=== PATIENT | male | born 1970 | race Caucasian/White ===

== ENCOUNTER 2024-06-19 17:26 | Outpatient (CLI) | payer BC, SELFPAY | END 2024-06-19 17:27 | disposition home or self-care (01) | LOC: AMB 06-20 04:10 | PROVIDERS: PCP Family Medicine; Visit Provider Emergency Medicine Emergency Medical Services | DX: R55 Syncope and collapse (principal) | CPT/HCPCS: A0425; A0427 ==

== ENCOUNTER 2024-06-19 18:06 | Emergency (ER) | payer BC, SELFPAY ==
[2024-06-19] VITALS (32 sets, daily range): BP systolic 70–117; BP diastolic 35–102; PULSE 81–95; RESP 20; TEMP 35.8; O2SAT 95–100; BMI 32.4
[2024-06-19 18:38] LABS: Lactate Sepsis w/Reflex* 7.4 mmol/L (0.5-1.9)
[2024-06-19 18:39] LABS: Basophils Absolute Auto 0.01 K/uL (0.00-0.30); Basophils Percent Auto 0.1 % (0.0-3.0); Hematocrit 34.4 % (37.0-53.0); Immature Granulocytes Abs Auto 0.04 K/uL (0.00-0.30); Immature Granulocytes Pct Auto 0.6 %; Lymphocytes Percent Auto 50.5 % (20-44); Mean Corpuscular HGB Conc 35 gm/dL (32-36); Mean Corpuscular Hemoglobin 31 pg (26-34); Mean Corpuscular Volume 89 fL (80-100); Monocytes Percent Auto 2.6 % (0.0-11.0); Neutrophils Absolute Auto 3.32 K/uL (1.7-7.0); Neutrophils Percent Auto 46.2 % (42.0-72.0); Platelet Count* 76 K/uL (140-440); RDW Coefficient of Variation % 11.8 % (11.5-15.5); Red Blood Count 3.85 m/uL (4.30-5.90); White Blood Count* 7.19 K/uL (4.50-11.00)
--- NOTE | 2024-06-19 18:45 | CRLHL7_ITS ---
For Patients: As a result of the Century Cures Act, medical imaging exams and procedure reports are released immediately into your electronic medical record. You may view this report before your referring provider. If you have questions, please contact your health care provider. Indication: Hypotensive, thrombocytopenia Technique: Noncontrast CT through the head with multiplanar reformats Comparison: None Findings: Brain: No acute hemorrhage. No acute infarct. No significant mass effect or midline shift. No gross evidence of a mass lesion or cerebral edema. Mild chronic microvascular ischemic disease. Ventricles: No acute abnormality appreciated. Orbits, sinuses, mastoids: No acute abnormality appreciated. Calvarium and soft tissues: No acute abnormality appreciated. Impression: No acute abnormality appreciated. Please note that all CT scans at this facility use dose modulation, iterative reconstruction, and/or weight-based dosing when appropriate to reduce radiation dose to as low as reasonably achievable. Dictated by Alexi Liriano MD @ 06/19/2024 9:19:14 PM (Electronically Signed)
[2024-06-19] MEDS: 0.9 % SODIUM CHLORIDE 1000 ml 1,000 ML IV (18:54)
[2024-06-19 18:59] LABS: Albumin* 3.4 g/dL (3.3-5.0); Chloride* 98 mmol/L (96-114); Sodium* 132 mmol/L (135-149)
[2024-06-19 19:02] LABS: Alanine Aminotransferase* 66 U/L (4-50); Alkaline Phosphatase* 59 U/L (40-150); Anion Gap 14 mEq/L (7-15); Aspartate Amino Transferase* 77 U/L (12-35); Bilirubin Total* 1.2 mg/dL (0.1-1.5); Blood Urea Nitrogen* 22 mg/dL (7-30); Calcium* 8.8 mg/dL (8.4-10.6); Carbon Dioxide* 20 mmol/L (20-32); Creatinine* 1.2 mg/dL (0.5-1.5); Est. Creatinine Clearance* 89.92; Estimated Glomerular Filt Rate 71 ml/min; Glucose* 306 mg/dL (60-115); Total Protein* 6.1 g/dL (6.0-8.3)
[2024-06-19 19:03] LABS: Magnesium* 2.5 mg/dL (1.5-2.6)
[2024-06-19 19:04] LABS: Slide Review Reflex No
[2024-06-19 19:12] LABS: NT Pro B Type NatriureticPept* 132 pg/mL
[2024-06-19 19:13] LABS: Troponin I* 0.02 ng/mL (0.01-0.04)
[2024-06-19 19:26] LABS: pH VBG 7.373 (7.32-7.43)
[2024-06-19 19:27] LABS: HCO3 VBG 23 mmol/L (21-28); PCO2 VBG 39 mmHG (40-50); PO2 VBG < 30.1 mmHG (25-47)
[2024-06-19 19:35] LABS: PCR FLU A Negative PCR FLU A (Negative); PCR FLU B Negative PCR FLU B (Negative); SARS PCR* Negative SARS-CoV-2 (Negative)
[2024-06-19 19:51] LABS: Ethanol* < 0.01 % (0.01-0.03)
[2024-06-19] MEDS: HYDROCORTISONE SOD SUCCINATE 50 MG/ML inj IVP (19:51)
[2024-06-19] MEDS: PIPERACILLIN/TAZOBACTAM 3.375 GM in 0.9 % SODIUM CHLORIDE Mini-bag 100 ML IVPB (19:57)
--- NOTE | 2024-06-19 19:58 | ED.GENADULT ---
HPI - General Adult General Date Seen: 06/19/24 Chief complaint: Syncope/Fainted Stated complaint: Fall Time Seen by Provider: 06/19/24 18:13 Source: patient and EMS Mode of arrival: EMS Limitations: no limitations History of Present Illness HPI narrative: Patient is a 53-year-old male presenting to emergency department for lightheadedness. He states he was walking up his steps before very lightheaded and fell to his hands and knees. He denies hitting his head denies any other injuries but was feeling very lightheaded still in his neighbor helped him out of his house. He states he started feel better when he lies down. EMS was then called and when they arrived his blood pressure was normal but since he stood up the he became more hypotensive and since then his blood pressures have been in the 70s to 80 systolic. Patient states he still feels very lightheaded at this time. He was given fluids by EMS in route. Patient states he was seen in the emergency department at an [facility] direct yesterday for and turn thrombocytopenia and a swollen scrotum. Ultrasound scrotum was done showing hydrocele and he states the swelling has gone down quite a bit he is no longer having pain. At that time they noticed he had be the cause 27 and did more imaging and did not find any abnormalities. Lab work did not show any concerning findings for them and he was discharged according to the patient. Denies fevers, chills, chest pain, shortness of breath, abdominal pain, diarrhea, constipation, headache, vision changes. Related Data Home Medications ?Medication ?Instructions ?Recorded ?Confirmed No Known Home Medications 11/15/22 Allergies Allergy/AdvReac Type Severity Reaction Status Date / Time No Known Allergies Allergy Unknown Unknown Verified 11/15/22 14:27 Review of Systems Status of ROS: Reports: 10 or more systems reviewed and unremarkable except as noted in History and below [facility] Surgical History Status post surgical removal of pilonidal cyst ?Z98.890 - Other specified postprocedural states (ICD-10) Status post tonsillectomy and adenoidectomy ?Z90.89 - Acquired absence of other organs (ICD-10) Social History Smoking Status: Never smoker Exam Narrative: Exam Narrative: Const: Well-nourished, Well-developed, in moderate distress Eyes: PERRL, no conjunctival injection, and symmetrical lids HENT: Atraumatic external nose and ears. Moist mucous membranes. Neck: Symmetric, trachea midline, No thyromegaly. CVS: RRR, No murmurs or gallops. Peripheral pulses 2+ and equal in all extremities RESP: Unlabored respiratory effort. Clear to auscultation bilaterally. GI: Nontender/Nondistended, No rebound or guarding. MSK:Extremities w/o deformity, Normal Active ROM Skin: Warm, Dry. No rashes or lesions. Neuro: Normal Muscle tone, No focal neurological deficits. Psych: Awake, Alert, & Oriented x3. Appropriate mood and affect. Const: Vital Signs, click to edit/add: Vital Signs - 24 hr 06/19/24 18:14 06/19/24 18:14 06/19/24 18:15 Temperature 96.5 F L Pulse Rate 90 87 Pulse Rate [Pulse Oximeter] 88 Respiratory Rate 20 Blood Pressure 73/57 L Blood Pressure [Le ft Upper Arm] 73/57 L Pulse Oximetry 95 100 100 Oxygen Delivery Me od Room Air 06/19/24 18:20 06/19/24 18:30 06/19/24 18:32 Temperature Pulse Rate 86 85 84 Pulse Rate [Pulse Oximeter] Respiratory Rate Blood Pressure 76/54 L 82/61 L Blood Pressure [Le ft Upper Arm] Pulse Oximetry 99 100 98 Oxygen Delivery Nm thod 06/19/24 18:33 06/19/24 18:41 06/19/24 18:45 Temperature Pulse Rate 83 83 84 Pulse Rate [Pulse Oximeter] Respiratory Rate Blood Pressure 90/61 Blood Pressure [Le ft Upper Arm] Pulse Oximetry 98 99 100 [facility] 18:57 06/19/24 18:59 06/19/24 19:00 Temperature Pulse Rate 83 82 Pulse Rate [Pulse Oximeter] Respiratory Rate Blood Pressure 75/62 L 73/53 L Blood Pressure [Le ft Upper Arm] Pulse Oximetry 100 100 Oxygen Delivery Me thod 06/19/24 19:02 06/19/24 19:06 06/19/24 19:29 Temperature Pulse Rate 81 81 Pulse Rate [Pulse Oximeter] Respiratory Rate Blood Pressure 70/55 L 80/35 L 85/53 L Blood Pressure [Le ft Upper Arm] Pulse Oximetry 100 96 Oxygen Delivery Me thod 06/19/24 19:30 06/19/24 19:31 06/19/24 19:38 Temperature Pulse Rate 83 83 84 Pulse Rate [Pulse Oximeter] Respiratory Rate Blood Pressure 78/58 L 117/102 H Blood Pressure [Le ft Upper Arm] Pulse Oximetry 97 97 100 Oxygen Delivery Me thod 06/19/24 19:42 06/19/24 19:45 06/19/24 19:49 Temperature Pulse Rate 86 87 85 Pulse Rate [Pulse Oximeter] Respiratory Rate Blood Pressure 95/66 86/72 L Blood Pressure [Le ft Upper Arm] Pulse Oximetry 100 95 98 Oxygen Delivery Me thod 06/19/24 19:52 06/19/24 20:00 06/19/24 20:02 Temperature Pulse Rate 88 86 Pulse Rate [Pulse Oximeter] Respiratory Rate Blood Pressure 112/72 95/49 L Blood Pressure [Le ft Upper Arm] Pulse Oximetry 98 100 Oxygen Delivery Me thod 06/19/24 20:11 06/19/24 20:12 06/19/24 20:15 Temperature Pulse Rate 88 87 89 Pulse Rate [Pulse Oximeter] Respiratory Rate Blood Pressure 110/68 Blood Pressure [Le ft Upper Arm] Pulse Oximetry 97 99 96 Oxygen Delivery Me thod 06/19/24 21:02 06/19/24 21:18 Temperature Pulse Rate 89 95 Pulse Rate [Pulse Oximeter] Respiratory Rate Blood Pressure Blood Pressure [Le ft Upper Arm] Pulse Oximetry 99 100 Oxygen Delivery Me thod Course Vital Signs Vital signs: Initial Vital Signs Temperature 96.5 F L 06/19/24 18:14 Temperature Source Temporal Artery Scan 06/19/24 18:14 Pulse Rate 90 06/19/24 18:14 Pulse Rhythm Regular 06/19/24 18:14 Respiratory Rate 20 06/19/24 18:14 Blood Pressure 73/57 L 06/19/24 18:14 Blood Pressure Mean 62 L 06/19/24 18:14 Blood Pressure Position Supine 06/19/24 18:14 Pulse Oximetry 95 06/19/24 18:14 Oxygen Delivery Method Room Air 06/19/24 18:14 Vital Signs Temperature 96.5 F L 06/19/24 18:14 Pulse Rate 90 06/19/24 18:14 Respiratory Rate 06/19/24 18:14 Blood Pressure 73/57 L 06/19/24 18:14 Pulse Oximetry 95 06/19/24 18:14 Oxygen Delivery Method Room Air 06/19/24 18:14 Temperature 96.5 F L 06/19/24 18:14 Pulse Rate 95 06/19/24 21:18 Respiratory Rate 20 06/19/24 18:14 Blood Pressure 110/68 06/19/24 20:11 Pulse Oximetry 100 06/19/24 21:18 Oxygen Delivery Method Room Air 06/19/24 18:14 Medications Administered Medications: Generic Name Dose Route Start Last Admin Trade Name Freq PRN Reason Stop Dose Admin Hydrocortisone Sodium Succinate 50 mg 06/19/24 19:45 06/19/24 19:51 Hydrocortisone Sod Succinate 50 Mg/Ml Inj IVP 50 mg Q6H NOAH Administration Norepinephrine/Dextrose 4,000 mcg in 250 mls @ 47.627 mls/hr 06/19/24 19:15 06/19/24 19:34 Norepinephrine Infusion IV 0.1 mcg/kg/min CONT NOAH 47.63 mls/hr Administration Protocol 0.1 MCG/KG/MIN Sodium Chloride 2,000 mls @ 1,000 mls/hr 06/19/24 20:00 06/19/24 20:00 0.9 % Sodium Chloride 1000 Ml IV 06/19/24 21:59 Infused .Q2H NOAH Infusion Discontinued Medications Generic Name Dose Route Start Last Admin Trade Name Freq PRN Reason Stop Dose Admin Sodium Chloride 1,000 mls @ 1,000 mls/hr 06/19/24 18:30 06/19/24 18:54 0.9 % Sodium Chloride 1000 Ml IV 06/19/24 19:29 Infused .Q1H NOAH Infusion Vancomycin/PEG/NADA/Lysine/Water 2 gm in 400 mls @ 200 mls/hr 06/19/24 19:44 06/19/24 20:54 Vancomycin 2 Gm/400 Ml IVPB 06/19/24 21:43 200 mls/hr ONCE ONE Administration Protocol Piperacillin Sod/Tazobactam 100 mls @ 200 mls/hr 06/19/24 19:44 06/19/24 20:55 Sod 3.375 gm/ Sodium Chloride IVPB 06/19/24 19:45 Infused ONCE ONE Infusion Medical Decision Making MDM Narrative Medical decision making narrative: Patient is a 53-year-old male presenting to emergency department for hypertension. I am unsure was causes hypertension and differential is broad including aortic dissection, AAA, PE, pneumothorax, ACS, sepsis. He did recently start dexamethasone this morning. I will order broad workup including CBC, CMP, COVID/flu/RSV, urine drug screen, urinalysis, troponin, lactate, magnesium, blood cultures, BNP, ETOH, VBG. Will be given him several L of normal saline per sepsis protocol. Lab work returned showing a platelet count 76 which is up from 27 yesterday and hemoglobin of 12 which is actually down from 14.8 yesterday. His VBG shows no concerning abnormalities. CMP really shows no obvious abnormalities he has a slightly low sodium of 132 his AST and ALT are slightly elevated by likely be causing symptoms. BMP within normal limits. Troponin within normal limits. His lactate is elevated 7.4 this makes the concern for sepsis but also just be from his hypotension that that is been going on longer than we realized. Of note his blood pressure was normal yesterday at [facility]. His blood sugars elevated at 306 per no signs of DKA or HHS. No recent head injuries and neurogenic shock seems unlikely. A cardiogenic shock is possible but no signs of STEMI at this time. I initially ordered a brenner scan of chest abdomen pelvis and CT scan head but the CT scanner was not working and thus delayed the CT scan. In the meantime I will start him on Solu-Cortef 50 mg q.6 along with vanco and Zosyn. He was started on Levophed as blood pressures were not improving at all with the fluid boluses. While was waiting for CT scanning to become working again I spoke to multiple ICU for transfer. I did then she was able to get transfer to [place] [facility] Dr. Sim accepted. After this CT scanner became working again and I ordered a CT scan of the head along with a CTA of the chest abdomen pelvis. Considering he has this undifferentiated shock I believe this to be more useful and he also has that slight hemoglobin drop. CT scan of the head reviewed by myself the radiologist shows no acute abnormalities. CT of the chest abdomen pelvis shows a 5.8 ascending aneurysm but this is not appear to be causing his symptoms. There is a large amount of blood seen within the abdomen. It appears to be coming from the spleen by cannot say for certain considering the phase of the contrast. He graham not remember any falls or injuries to his abdomen. I do not think he would be appropriate for leg feels are called [facility] back and they will take him directly to the emergency department. I spoke to Dr. Bustamanteaccepted him. There also have the surgeon on the call also. They are agreeable to this plan. Patient be started on blood. We do not have platelets available to start. He will be transferred via helicopter. Lab Data Labs: Lab Results 06/19/24 06/19/24 06/19/24 Range/Units 18:22 18:25 18:45 WBC 7.19 (4.50-11.00) K/uL RBC 3.85 L (4.30-5.90) m/uL Hgb 12.0 L (13.5-17.5) gm/dL Hct 34.4 L (37.0-53.0) % MCV 89 (80-100) fL MCH 31 (26-34) pg MCHC 35 (32-36) gm/dL RDW Coeff of Verena 11.8 (11.5-15.5) % Plt Count 76 L (140-440) K/uL Neut % (Auto) 46.2 (42.0-72.0) % Lymph % (Auto) 50.5 H (20-44) % Ripley % (Auto) 2.6 (0.0-11.0) % Eos % (Auto) 0.0 (0.0-7.0) % Baso % (Auto) 0.1 (0.0-3.0) % Neut # (Auto) 3.32 (1.7-7.0) K/uL Lymph # (Auto) 3.60 H (0.90-2.90) K/uL Ripley # (Auto) 0.20 (0.00-0.90) K/UL Eos # (Auto) 0.00 (0.00-0.50) K/uL Baso # (Auto) 0.01 (0.00-0.30) K/uL Abs Immat Gran (auto) 0.04 (0.00-0.30) K/uL Imm/Tot Granulo (auto) 0.6 % Absolute Retic 0.03 (0.03-0.08) # Percent Retic 0.7 (0.5-2.0) % Immature Retic Fraction 14.5 H (2.3-13.4) % Retic Hgb Equivalent 27.4 L (29.0-35.0) pg VBG pH 7.373 (7.32-7.43) VBG pCO2 39 L (40-50) mmHG VBG pO2 < 30.1 (25-47) mmHG VBG HCO3 23 (21-28) mmol/L Sodium 132 L (135-149) mmol/L Potassium 4.0 (3.6-5.1) mmol/L Chloride 98 (96-114) mmol/L Carbon Dioxide 20 (20-32) mmol/L Anion Gap 14 (7-15) mEq/L BUN 22 (7-30) mg/dL Creatinine 1.2 (0.5-1.5) mg/dL Estimated Creat Clear 89.92 Estimated GFR 71 ml/min Glucose 306 H (60-115) mg/dL Lactate 7.4 H* (0.5-1.9) mmol/L Calcium 8.8 (8.4-10.6) mg/dL Magnesium 2.5 (1.5-2.6) mg/dL Total Bilirubin 1.2 (0.1-1.5) mg/dL AST 77 H (12-35) U/L ALT 66 H (4-50) U/L Alkaline Phosphatase 59 (40-150) U/L Troponin I 0.02 (0.01-0.04) ng/mL NT-Pro-B Natriuret Pep 132 pg/mL Total Protein 6.1 (6.0-8.3) g/dL Albumin 3.4 (3.3-5.0) g/dL Ethyl Alcohol < 0.01 L (0.01-0.03) % SARS-CoV-2 (PCR) (Negative) Influenza Type A (PCR) (Negative) Influenza Type B (PCR) (Negative) Lab Acknowledgement POC Creatinine 1.3 (0.6-1.3) mg/dl POC Troponin I 0.00 L (0.01-0.04) ng/ml 06/19/24 06/19/24 06/19/24 Range/Units 18:46 19:17 20:49 WBC (4.50-11.00) K/uL RBC (4.30-5.90) m/uL Hgb (13.5-17.5) gm/dL Hct (37.0-53.0) % MCV (80-100) fL MCH (26-34) pg MCHC (32-36) gm/dL RDW Coeff of Verena (11.5-15.5) % Plt Count (140-440) K/uL Neut % (Auto) (42.0-72.0) % Lymph % (Auto) (20-44) % Ripley % (Auto) (0.0-11.0) % Eos % (Auto) (0.0-7.0) % Baso % (Auto) (0.0-3.0) % Neut # (Auto) (1.7-7.0) K/uL Lymph # (Auto) (0.90-2.90) K/uL Ripley # (Auto) (0.00-0.90) K/UL Eos # (Auto) (0.00-0.50) K/uL Baso # (Auto) (0.00-0.30) K/uL Abs Immat Gran (auto) (0.00-0.30) K/uL Imm/Tot Granulo (auto) % Absolute Retic (0.03-0.08) # Percent Retic (0.5-2.0) % Immature Retic Fraction (2.3-13.4) % Retic Hgb Equivalent (29.0-35.0) pg VBG pH (7.32-7.43) VBG pCO2 (40-50) mmHG VBG pO2 (25-47) mmHG VBG HCO3 (21-28) mmol/L Sodium (135-149) mmol/L Potassium (3.6-5.1) mmol/L Chloride (96-114) mmol/L Carbon Dioxide (20-32) mmol/L Anion Gap (7-15) mEq/L BUN (7-30) mg/dL Creatinine (0.5-1.5) mg/dL Estimated Creat Clear Estimated GFR ml/min Glucose (60-115) mg/dL Lactate 5.4 H* (0.5-1.9) mmol/L Calcium (8.4-10.6) mg/dL Magnesium (1.5-2.6) mg/dL Total Bilirubin (0.1-1.5) mg/dL AST (12-35) U/L ALT (4-50) U/L Alkaline Phosphatase (40-150) U/L Troponin I (0.01-0.04) ng/mL NT-Pro-B Natriuret Pep pg/mL Total Protein (6.0-8.3) g/dL Albumin (3.3-5.0) g/dL Ethyl Alcohol (0.01-0.03) % SARS-CoV-2 (PCR) Negative SARS-CoV-2 (Negative) Influenza Type A (PCR) Negative PCR FLU A (Negative) Influenza Type B (PCR) Negative PCR FLU B (Negative) Lab Acknowledgement Test Added POC Creatinine (0.6-1.3) mg/dl POC Troponin I (0.01-0.04) ng/ml Imaging Data CT scan - head: Attestation: I have reviewed the pertinent imaging results. Radiologist's impression: No acute abnormality appreciated. Please note that all CT scans at this facility use dose modulation, iterative reconstruction, and/or weight-based dosing when appropriate to reduce radiation dose to as low as reasonably achievable. Dictated by Alexi Liriano MD @ 06/19/2024 9:19:14 PM ECG Data Attestation: I personally reviewed and interpreted this ECG as follows: Prior ECG tracings: not available for review Interpretation: Normal sinus rhythm with a rate of 93 beats per minutes, normal axis, normal intervals, no ST or T-wave abnormalities. Critical Care Time Critical Care Time Critical Care Time: Yes Attestation: The patient required my highest level preparedness to intervene emergently and I personally spent this critical care time directly and personally managing the patient. This critical care time included: Obtaining a history; Examining the patient; Pulse oximetry; Ordering and reviewing of studies; Arranging urgent treatment with development of a management plan; Evaluation of patients response to treatment; Frequent reassessment discussions with other providers. This critical care time was performed to assess and manage the high probability of imminent life-threatening deterioration that could result in multiorgan failure. It was exclusive of separate billable procedures and treating other patients and teaching time. Total Critical Care Time in Minutes: 65 Discharge Plan Discharge Clinical Impression: Hemorrhagic shock Aneurysm of ascending aorta Qualifiers: Presence of rupture: without rupture Qualified Code(s): I71.21 - Aneurysm of the ascending aorta, without rupture Condition: Critical Prescriptions: No Action No Known Home Medications Follow Up/Referrals: Sea Meyer MD [Primary Care Provider] - Stand Alone Forms: CORD:USE Cord Blood Bank Instructions
[2024-06-19] MEDS: SODIUM CHLORIDE IV (20:00)
--- NOTE | 2024-06-19 20:16 | CRLHL7_ITS ---
For Patients: As a result of the 21st Century Cures Act, medical imaging exams and procedure reports are released immediately into your electronic medical record. You may view this report before your referring provider. If you have questions, please contact your health care provider. Indication: Hypotensive, thrombocytopenia Technique: Dissection protocol. Noncontrast CT of the chest and postcontrast CTA of the chest, abdomen, and pelvis with multiplanar reformats following 95 mL Isovue 370 IV. Comparison: None Findings: Chest: Lungs: No consolidation. No effusion. No pneumothorax. Bibasilar atelectasis and/or scarring. Calcified granulomata. Mediastinum: Ascending aorta measures 5.8 centimeters. No evidence of dissection, rupture, or intramural thrombus. Lymph nodes: No gross lymphadenopathy. Soft tissues: No acute abnormality appreciated. Bones: No acute abnormality appreciated. Abdomen and Pelvis: Hepatobiliary: No significant parenchymal abnormality is appreciated. Spleen: Blood in the abdomen appears most concentrated in the left upper quadrant. There is a focal area of contrast blush near the inferoposterior margin of the spleen suspicious for active extravasation. Further evaluation precluded by arterial phase only examination. Pancreas: No acute abnormality appreciated. Adrenal glands: No acute abnormality appreciated. Kidneys: No significant parenchymal abnormality appreciated. No visualized calculi. No hydronephrosis. Bowel: No obstruction. No focal perienteric or pericolonic stranding is appreciated. The appendix is visualized and appears unremarkable. Vascular: No acute abnormality appreciated. Lymph nodes: No gross lymphadenopathy. Peritoneum: Large volume hemoperitoneum appearing concentrated at the left upper quadrant. : No acute abnormality appreciated. Soft tissues: No acute abnormality appreciated. Bones: No acute fracture. No lytic or blastic lesion. Impression: 1. Visceral assessment is somewhat limited due to arterial phase of examination. However, findings are highly suspicious for left splenic laceration with active hemorrhage and large volume hemoperitoneum. Surgical evaluation strongly recommended. 2. Ascending aortic aneurysm measures 5.8 centimeters. No acute aortic pathology appreciated. Surgical assessment recommended. Findings were communicated by telephone to Dr. Taqueria Portillo at 2120 on 06/19/2024. Please note that all CT scans at this facility use dose modulation, iterative reconstruction, and/or weight-based dosing when appropriate to reduce radiation dose to as low as reasonably achievable. Dictated by Alexi Liriano MD @ 06/19/2024 9:25:42 PM (Electronically Signed)
[2024-06-19] MEDS: VANCOMYCIN 2 GM/400 ML 2 GM/400 ML PIGGYBACK IVPB (20:54)
[2024-06-19 21:00] LABS: Lactate Sepsis 2 Hour 5.4 mmol/L (0.5-1.9)
[2024-06-19 21:16] LABS: Immature Reticulocyte Fraction 14.5 % (2.3-13.4); Reticulocyte Hemoglobin Equivi 27.4 pg (29.0-35.0); Reticulocyte Percent 0.7 % (0.5-2.0); Reticulocytes Absolute 0.03 # (0.03-0.08)
[2024-06-19 21:20] LABS: Creatinine, Point-of-Care* 1.3 mg/dl (0.6-1.3)
[2024-06-19 22:20] LABS: INR 1.06 (0.91-1.10); Prothrombin Time 14.5 Seconds
[2024-06-19 22:21] LABS: Partial Thromboplastin Time* 30 Seconds (23-33)
== END 2024-06-19 22:30 | disposition short-term general hospital (02) ==
PROVIDERS: Emergency Provider Student in an Organized Health Care Education/Training Program; PCP Family Medicine
DX: R57.8 Other shock (principal); I71.21 Aneurysm of the ascending aorta, without rupture
CPT/HCPCS: 36410; 36415; 70450; 71275; 74174; 80053; 80306; 82077; 82565; 82803; 83605; 83735; 83880; 84484; 85025; 85045; 85610; 85730; 86850; 86900; 86901; 86922; 87040; 87631; 88184; 88185; 93005; 99285; 99291; J1720; J2543; J3372; J7030; P9016; Q9967

== ENCOUNTER 2024-07-08 12:01 | Outpatient (CLI) | payer BC, SELFPAY | END 2024-07-08 12:02 | disposition home or self-care (01) | PROVIDERS: PCP Family Medicine; Visit Provider Family Medicine | DX: R63.4 Abnormal weight loss (principal); B27.90 Infectious mononucleosis, unspecified without complication | CPT/HCPCS: 80053; 84439; 84443 ==

== ENCOUNTER 2024-07-29 11:13 | Outpatient (CLI) | payer BC, SELFPAY | END 2024-07-29 11:14 | disposition home or self-care (01) | PROVIDERS: PCP Family Medicine; Visit Provider Family Medicine | DX: Z01.818 Encounter for other preprocedural examination (principal); Z12.5 Encounter for screening for malignant neoplasm of prostate | CPT/HCPCS: 80053; G0103 ==

== ENCOUNTER 2024-11-10 13:40 | Outpatient (CLI) | payer BC, SELFPAY | END 2024-11-10 13:41 | disposition home or self-care (01) | PROVIDERS: PCP Family Medicine; Visit Provider Family Medicine | DX: R94.6 Abnormal results of thyroid function studies (principal) | CPT/HCPCS: 84439; 84443 ==

== ENCOUNTER 2025-01-23 11:10 | Outpatient (CLI) | payer BC, SELFPAY | END 2025-01-23 11:11 | disposition home or self-care (01) | LOC: NFLDREF 01-29 16:20 | PROVIDERS: PCP Family Medicine; Referring Provider Family Medicine; Visit Provider Family Medicine | DX: Z86.73 Personal history of transient ischemic attack (TIA), and cerebral infarction without residual deficits (principal) | CPT/HCPCS: 85610 ==

== ENCOUNTER 2025-02-13 14:37 | Outpatient (CLI) | payer BC, SELFPAY | END 2025-02-13 14:38 | disposition home or self-care (01) | LOC: NFLDREF 02-16 01:41 | PROVIDERS: PCP Family Medicine; Referring Provider Family Medicine; Visit Provider Family Medicine | DX: Z79.01 Long term (current) use of anticoagulants (principal); Z86.73 Personal history of transient ischemic attack (TIA), and cerebral infarction without residual deficits | CPT/HCPCS: 85610 ==

== ENCOUNTER 2025-03-13 10:04 | Outpatient (CLI) | payer BC, SELFPAY | END 2025-03-13 10:05 | disposition home or self-care (01) | LOC: NFLDREF 03-19 11:39 | PROVIDERS: PCP Family Medicine; Referring Provider Family Medicine; Visit Provider Family Medicine | DX: Z95.2 Presence of prosthetic heart valve (principal); Z79.01 Long term (current) use of anticoagulants | CPT/HCPCS: 85610 ==

== ENCOUNTER 2025-03-20 08:50 | Outpatient (CLI) | payer BC, SELFPAY | END 2025-03-20 08:51 | disposition home or self-care (01) | LOC: NFLDREF 03-25 00:21 | PROVIDERS: PCP Family Medicine; Referring Provider Family Medicine; Visit Provider Family Medicine | DX: Z95.2 Presence of prosthetic heart valve (principal); Z86.73 Personal history of transient ischemic attack (TIA), and cerebral infarction without residual deficits; Z79.01 Long term (current) use of anticoagulants | CPT/HCPCS: 85610 ==

== ENCOUNTER 2025-04-03 08:06 | Outpatient (CLI) | payer BC, SELFPAY | END 2025-04-03 08:07 | disposition home or self-care (01) | LOC: NFLDREF 04-06 20:31 | PROVIDERS: PCP Family Medicine; Referring Provider Family Medicine; Visit Provider Family Medicine | DX: Z79.01 Long term (current) use of anticoagulants (principal); Z86.73 Personal history of transient ischemic attack (TIA), and cerebral infarction without residual deficits | CPT/HCPCS: 85610 ==

== ENCOUNTER 2025-04-20 09:32 | Outpatient (CLI) | payer BC, SELFPAY | END 2025-04-20 09:33 | disposition home or self-care (01) | LOC: NFLDREF 04-21 16:41 | PROVIDERS: PCP Family Medicine; Referring Provider Family Medicine; Visit Provider Family Medicine | DX: Z86.73 Personal history of transient ischemic attack (TIA), and cerebral infarction without residual deficits (principal) | CPT/HCPCS: 85610 ==

== ENCOUNTER 2025-05-01 09:02 | Outpatient (CLI) | payer BC, SELFPAY | END 2025-05-01 09:03 | disposition home or self-care (01) | LOC: NFLDREF 05-05 14:31 | PROVIDERS: PCP Family Medicine; Referring Provider Family Medicine; Visit Provider Family Medicine | DX: Z79.01 Long term (current) use of anticoagulants (principal); Z86.73 Personal history of transient ischemic attack (TIA), and cerebral infarction without residual deficits | CPT/HCPCS: 85610 ==

== ENCOUNTER 2025-05-21 09:30 | Outpatient (CLI) | payer BC, SELFPAY | END 2025-05-21 09:31 | disposition home or self-care (01) | LOC: NFLDREF 05-25 16:28 | PROVIDERS: PCP Family Medicine; Referring Provider Family Medicine; Visit Provider Family Medicine | DX: Z79.01 Long term (current) use of anticoagulants (principal); Z86.73 Personal history of transient ischemic attack (TIA), and cerebral infarction without residual deficits | CPT/HCPCS: 85610 ==

== ENCOUNTER 2025-06-18 13:37 | Outpatient (CLI) | payer BC, SELFPAY | END 2025-06-18 13:38 | disposition home or self-care (01) | LOC: NFLDREF 06-21 05:09 | PROVIDERS: PCP Family Medicine; Referring Provider Family Medicine; Visit Provider Family Medicine | DX: Z79.01 Long term (current) use of anticoagulants (principal); Z86.73 Personal history of transient ischemic attack (TIA), and cerebral infarction without residual deficits | CPT/HCPCS: 85610 ==

== ENCOUNTER 2025-07-03 11:10 | Outpatient (CLI) | payer BC, SELFPAY | END 2025-07-03 11:11 | disposition home or self-care (01) | LOC: NFLDREF 07-08 18:08 | PROVIDERS: PCP Family Medicine; Referring Provider Family Medicine; Visit Provider Family Medicine | DX: Z79.01 Long term (current) use of anticoagulants (principal); Z86.73 Personal history of transient ischemic attack (TIA), and cerebral infarction without residual deficits | CPT/HCPCS: 85610 ==

== ENCOUNTER 2025-08-05 10:31 | Outpatient (CLI) | payer BC, SELFPAY | END 2025-08-05 10:32 | disposition home or self-care (01) | LOC: NFLDREF 08-07 10:59 | PROVIDERS: PCP Family Medicine; Referring Provider Family Medicine; Visit Provider Family Medicine | DX: Z95.2 Presence of prosthetic heart valve (principal); Z79.01 Long term (current) use of anticoagulants; G81.94 Hemiplegia, unspecified affecting left nondominant side | CPT/HCPCS: 85610 ==

== ENCOUNTER 2025-08-28 10:05 | Outpatient (CLI) | payer BC, SELFPAY | END 2025-08-28 10:06 | disposition home or self-care (01) | LOC: NFLDREF 09-02 09:08 | PROVIDERS: PCP Family Medicine; Referring Provider Family Medicine; Visit Provider Family Medicine | DX: Z86.73 Personal history of transient ischemic attack (TIA), and cerebral infarction without residual deficits (principal); Z79.01 Long term (current) use of anticoagulants | CPT/HCPCS: 85610 ==

== ENCOUNTER 2025-09-11 08:57 | Outpatient (CLI) | payer BC, SELFPAY | END 2025-09-11 08:58 | disposition home or self-care (01) | LOC: NFLDREF 09-17 13:53 | PROVIDERS: PCP Family Medicine; Referring Provider Family Medicine; Visit Provider Family Medicine | DX: Z95.2 Presence of prosthetic heart valve (principal); Z79.01 Long term (current) use of anticoagulants | CPT/HCPCS: 85610 ==

== ENCOUNTER 2025-10-02 10:17 | Outpatient (CLI) | payer BC, SELFPAY | END 2025-10-02 10:18 | disposition home or self-care (01) | LOC: NFLDREF 10-07 10:32 | PROVIDERS: PCP Family Medicine; Referring Provider Family Medicine; Visit Provider Family Medicine | DX: Z95.2 Presence of prosthetic heart valve (principal); Z79.01 Long term (current) use of anticoagulants | CPT/HCPCS: 85610 ==